=== PATIENT | male | born 1985 | race Caucasian/White ===

== ENCOUNTER 2018-07-15 12:37 | Inpatient (IN) | payer OTHER ==
[~2018-07-15] VITALS: Ht 175.3 cm; Wt 104.5 kg
--- NOTE | 2018-07-15 15:00 | NUR ---
RECEIVED PT FROM DR. CHOE OFFICE, DIRECT ADMIT. ADMITTED WITH ACUTE APPENDICITIS. NO C/O PAIN. NO S/S OF ACUTE DISTRESS NOTED. FAMILY AT BEDSIDE. PT AMBULATORY. ALERT AND ORIENTED. IV TO RIGHT FOREARM, SL, SITE PATENT WITHOUT REDNESS OR SWELLING. PT DENIES ANYTHING FURTHER AT THIS TIME. CALL LIGHT IN REACH. WILL CONTINUE TO MONITOR.
[2018-07-15 15:45] VITALS: BP 114/78
[2018-07-15 16:02] LABS: BASOPHILS 0.1 % (0-2); EOSINOPHILS 0 % (0-7); HEMATOCRIT 44.8 % (42.0-54.0); IMMATURE GRANULOCYTES 0.3 % (0-5); LYMPHOCYTES 9.4 % (15-50); MCH 29.6 pg (26.0-34.0); MCHC 35.7 g/dL (31.0-37.0); MEAN PLATELET VOLUME 12.1 fL (7.4-10.4); NEUTROPHILS 83.2 % (40-80); PLATELET COUNT 166 10x3/uL (130-400); RDW 12.8 % (11.5-14.5); WBC 14.3 10x3/uL (4.8-10.8)
[2018-07-15 16:22] LABS: ALBUMIN 3.8 g/dL (3.4-5.0); ALKALINE PHOSPHATASE 77 U/L (46-116); ALT (SGPT) 41 U/L (10-68); BILIRUBIN - TOTAL 0.71 mg/dL (0.2-1.3); CALC OSMOLALITY 276 mosm/kg (275-300); CALCIUM 8.6 mg/dL (8.5-10.1); CARBON DIOXIDE 27.3 mmol/L (21.0-32.0); CHLORIDE - SERUM 102 mmol/L (98-107); CREATININE - SERUM 1.1 mg/dL (0.6-1.3); GLUCOSE 114 mg/dL (74-106); POTASSIUM - SERUM 4.1 mmol/L (3.5-5.1); PROTEIN - SERUM 6.7 g/dL (6.4-8.2); SODIUM 138 mmol/L (136-145); UREA NITROGEN 13 mg/dL (7-18); eGFR NON AFRICAN AMERICAN 82 mL/min (90-120)
[2018-07-15 16:57] VITALS: BP 114/78
[2018-07-15 17:29] VITALS: BMI 34.0
--- NOTE | 2018-07-15 17:30 | NUR ---
PT TAKEN TO SURGERY FOR LAP APPY. NO C/O PAIN. NO S/S OF ACUTE DISTRESS NOTED. FAMILY AT BEDSIDE. ACCOMPANIED BY HOSPITAL STAFF. PT DENIES ANYTHING AT THIS TIME
--- NOTE | 2018-07-15 17:51 | HP ---
PATIENT: HEBERT BERGER MEDICAL RECORD: [id number] ACCOUNT: [id number] LOCATION:D.MS [place] : 85 ADMISSION DATE: 07/15/18 PCP: DONNA PRABHAKAR DO HISTORY AND PHYSICAL EXAMINATION HISTORY: Mr. Berger is a 32-year-old white male that presents to my office today complaining of right lower quadrant abdominal pain, which started yesterday. He has not had any fever. He has had decreased appetite. He had nausea and vomiting overnight. His white count is 13,000. Urinalysis is negative. He is sent for a CAT scan. Verbal report confirms acute appendicitis with fecalith. He is admitted at this time for surgical evaluation. I have spoken to Dr. Reynaga. PAST MEDICAL HISTORY: Negative. PAST SURGICAL HISTORY: He had surgery on his wrist. ALLERGIES: None known. MEDICINES: None. FAMILY HISTORY: Noncontributory. SOCIAL HISTORY: The patient does smoke a pack per day. Occasional alcohol. REVIEW OF SYSTEMS: See chief complaint. No fever. Some nausea and vomiting last night, none today. No chest pain. No shortness of breath. Diffuse abdominal pain, which started yesterday, which is now localized to the right lower quadrant. No dysuria. No rash. PHYSICAL EXAMINATION: HEAD: Normocephalic. NECK: Soft and supple. HEART: Regular. LUNGS: Clear. ABDOMEN: Slightly distended and firm with tenderness in the right lower quadrant. EXTREMITIES: He has positive heel strike and positive psoas sign. IMPRESSION: Acute appendicitis. PLAN: Admit. IV fluids. Pain meds and antiemetics. Surgical consult with Dr. Reynaga. Hospitalist team also notified. TRANSINT:[id number] Voice Confirmation ID: [id number] DOCUMENT ID: [id number] HISTORY AND PHYSICAL [id number] HEBERT BERGER DONNA PRABHAKAR DO at 1759 CC: [id number] DICTATION DATE: 07/15/18 1513 FORESTRY FOREMAN: 07/15/18 1540 [place] [address]
--- NOTE | 2018-07-15 19:10 | NUR ---
RECEIVED PT FROM RECOVERY. PT HAD LAP APPY, 3 INCISION SITES, CDI. NO C/O PAIN. NO S/S OF ACUTE DISTRESS NOTED. VITALS STABLE. PT DENIES ANYTHING FURTHER AT THIS TIME. CALL LIGHT IN REACH. WILL CONTINUE TO MONITOR.
[2018-07-15 19:12] VITALS: BP 126/78
[2018-07-15 20:25] VITALS: BP 125/69
--- NOTE | 2018-07-15 20:45 | NUR ---
SUPINE IN BED, GIRLFRIEND LYING ON EDGE AT BESIDE HIM. PT IS A&O X 4, VITAL SIGNS STABLE. DENIES PAIN. STATES HE GOT UP AND URINATED LESS THAN 30 MINUTES AGO. CL IN REACH, NO COMPLAINTS/REQUESTS AT THIS TIME WILL CONTINUE TO MONITOR.
[2018-07-16] VITALS (16 sets, daily range): BP systolic 82–149; BP diastolic 62–83
[2018-07-16 00:39] LABS: BASOPHILS 0.1 % (0-2); EOSINOPHILS 0 % (0-7); IMMATURE GRANULOCYTES 0.3 % (0-5); LYMPHOCYTES 12.3 % (15-50); MCH 28.8 pg (26.0-34.0); MCHC 34.2 g/dL (31.0-37.0); MCV 84.3 fL (80.0-100.0); MEAN PLATELET VOLUME 12.4 fL (7.4-10.4); MONOCYTES 1.7 % (2-11); NEUTROPHILS 85.6 % (40-80); RDW 13.1 % (11.5-14.5); WBC 17.5 10x3/uL (4.8-10.8)
[2018-07-16 00:49] LABS: HEMOGLOBIN 12.3 g/dL (13.5-17.5); PLATELET COUNT 288 10x3/uL (130-400); RBC 4.27 10x6/uL (4.20-6.10)
--- NOTE | 2018-07-16 01:00 | NUR ---
RECEIVED REPORT FROM MARQUIS. PT BEING TRANSFERRED TO ICU AFTER HE ATTEMPTED TO GET UP OOB, WENT PALE, AND LOST CONSCIOUSNESS. BP WAS DECREASED, HR ELEVATED. RAPID RESPONSE WAS CALL. DR VINES WANTS US TO MONITOR PT OVERNIGHT. PT ARRIVED TO UNIT AWAKE AND ALERT. PT WAS ABLE TO MOVE SELF OVER TO BED. CURRENTLY PT HAS A BOLUS OF LR GOING THAT WAS ORDERED DURING THE RAPID RESPONSE. DR TRIMBLE ALSO RESPONDED TO FLOOR DURING THE TIME AND ORDERED CARDIAC ENZYMES Q6H. RESULTS OF FIRST ONES ARE BACK AND WITHIN THE NORMAL RANGE. PT HAS FAMILY AT BEDSIDE. BP IS STABLE AT THIS TIME. HR IS STILL RUNNING SINUS TACH AT THIS TIME. WILL CONTINUE TO MONITOR CLOSELY.
[2018-07-16 01:19] LABS: ALKALINE PHOSPHATASE 58 U/L (46-116); BILIRUBIN - TOTAL 1.09 mg/dL (0.2-1.3); CALCIUM 7.7 mg/dL (8.5-10.1); CHLORIDE - SERUM 103 mmol/L (98-107); CKMB 0.3 U/L (0.0-3.6); CREATINE KINASE 55 UL (21-232); PROTEIN - SERUM 5.7 g/dL (6.4-8.2); SODIUM 137 mmol/L (136-145); UREA NITROGEN 16 mg/dL (7-18)
[2018-07-16 01:21] LABS: ALBUMIN 2.8 g/dL (3.4-5.0); ALT (SGPT) 28 U/L (10-68); CALC OSMOLALITY 290 mosm/kg (275-300); CARBON DIOXIDE 15.2 mmol/L (21.0-32.0); CREATININE - SERUM 1.9 mg/dL (0.6-1.3); GLUCOSE 384 mg/dL (74-106); TROPONIN-I < 0.017 ng/mL (0.000-0.060); eGFR NON AFRICAN AMERICAN 44 mL/min (90-120)
--- NOTE | 2018-07-16 03:04 | NUR ---
REASSESSMENT COMPLETED, SEE FLOWSHEET. PT IS RESTING IN BED AT THIS TIME WITH EYES CLOSED. NO SIGNS OF ACUTE DISTRESS. WILL CONTINUE TO MONITOR.
[2018-07-16 03:36] LABS: HEMATOCRIT 31.7 % (42.0-54.0)
--- NOTE | 2018-07-16 05:05 | NUR ---
PT RESTING IN BED WITH EYES OPEN. FAMILY AT BEDSIDE. VSS AT THIS TIME. NO SIGNS OF ACUTE DISTRESS. WILL CONTINUE TO MONITOR.
[2018-07-16 08:00] LABS: CKMB 0.6 U/L (0.0-3.6); CREATINE KINASE 46 UL (21-232)
[2018-07-16 08:04] LABS: TROPONIN-I 0.089 ng/mL (0.000-0.060)
--- NOTE | 2018-07-16 09:00 | NUR ---
0700 PT RECIEVED ALERT AN DORIENTED VSS ON ROOM AIR, CONTINENT, DENIES PAIN, DRESSINGS FROM LAP APPY SITES CDI, RFA PIV WITH NS 50ML/HR, DENIES PAIN AND ALL NEEDS, STATES HE IS PASSING GAS, REFUSES BREAKFAST AT THIS TIME 0830 DR VINES IN UNIT, AWARE OF LABS AND TRIPONIN, WILL CALL WITH RESULTS OF SCANS , FAMILY AT BEDSIDE AND SPOKE WITH DR VINES, WILL CONTINUE TO MONITOR
--- NOTE | 2018-07-16 10:06 | NUR ---
SPOKE WITH RADIOLOGY TO CONFIRM THEY ARE AWARE OF PERFUSION AND US ORDER
--- NOTE | 2018-07-16 10:50 | NUR ---
PT NOTED TO HAVE ANOTHER DARK LIQUID BOWEL MOVEMENT, CHANGED PT AND HE BEGAN BITING ETT, WHEN ROLLED ONTO BACK STOPPED BITING ETT, BEGAN A SHIVERING/SHAKING MOTION WITH ARMS AND UPPER BODY, DR FAIRCHILD IN UNIT AND AWARE, IN ROOM TO ASSESS SHIVERING MOTION, PER DR FAIRCHILD WILL LEAVE SEDATION OFF PT IS NOT WITHDRAWING FROM PAIN AT THIS TIME AND WILL CONTINUE TO MONITOR FOR CHANGES, PUPILS PERRLA.
--- NOTE | 2018-07-16 12:18 | NUR ---
1200 TAKEN TO VQ SCAN, REVIEWED DIRECTIONS WITH NUC MED AND PT STATES UNDERSTANDING, UPON PLACING MASK FOR SCAN PT BEGAN TO GET ANXIOUS STATED HE DIDNT KNOW HOW TO BREATHE AND THAT HOLDING HIS BREATH FOR A LONG TIME MADE HIS CHEST HURT, INSTRUCTED THAT HE WILL HOLD BREATH FOR ONLY 10 SECONDS AND THEN BREATH NORMALLY, PT UNABLE TO FOLLOW THE DIRECTIONS DURING TEST AND RETURNED TO ROOM, DR VINES PAGED AND NOTIFIED
[2018-07-16 12:49] LABS: CKMB 0.7 U/L (0.0-3.6); CREATINE KINASE 61 UL (21-232); TROPONIN-I 0.058 ng/mL (0.000-0.060)
--- NOTE | 2018-07-16 14:52 | NUR ---
PT TO TRANSFER TO 2229, PT STATED HE WOULD CALL HIS FAMILY TO NOTIFY, CALLED REPORT TO FLORENTINO
--- NOTE | 2018-07-16 15:19 | NUR ---
PATIENT ADMITTED TO ROOM 2230 FROM ICU. SKIN W/D TO TOUCH, COLOR PINK, RESP. REGULAR AND EVEN AT 18. ABDOMEN DISTENDED AND 3 INCISION AREAS COVERED WITH BANDAIDS, HYPOACTIVE BOWEL SOUNDS. LUNS CLEAR HAVE EXPIRATORY WHEEZING. MIRNA FEET NO EDEMA NOTED POSITIVE BILATERAL PULSES. PASSING GAS NO BOWEL MOVEMENT YET. VS: 152/82, 93 O2 SAT 96 ON ROOM AIR, RESP. 18, 98.3 ORAL TEMP. DENIED PAIN WHEN ASKED. C/L WITHIN REACH AND SR'S UP X'S 2.
[2018-07-16 19:09] LABS: CREATINE KINASE 73 UL (21-232); TROPONIN-I 0.054 ng/mL (0.000-0.060)
--- NOTE | 2018-07-16 19:30 | NUR ---
RECEIVED REPORT, ASSUMED CARE, DENIES NEEDS, FAMILY AT BEDSIDE, CALL LIGHT IN REACH, NO S/S OF DISTRESS NOTED, BED LOWEST POSITION, WILL CONTINUE POC
[2018-07-17] VITALS: BP 120/57; BP 131/70
[2018-07-17 03:00] VITALS: BP 123/56
--- NOTE | 2018-07-17 04:00 | NUR ---
PT RESTING QUIETLY, EYES CLOSED. RESP EVEN, UNLABORED. NO DISTRESS NOTED. AGREE WITH LOGGING EQUIPMENT MECHANIC'S ASSESSMENT, CONTINUE PLAN OF CARE.
[2018-07-17 06:18] LABS: BASOPHILS 0.1 % (0-2); EOSINOPHILS 0.1 % (0-7); IMMATURE GRANULOCYTES 0.2 % (0-5); LYMPHOCYTES 29.2 % (15-50); MCH 28.8 pg (26.0-34.0); MCHC 33.8 g/dL (31.0-37.0); MCV 85.4 fL (80.0-100.0); MONOCYTES 8.5 % (2-11); NEUTROPHILS 61.9 % (40-80); RDW 13.5 % (11.5-14.5)
[2018-07-17 06:22] LABS: HEMATOCRIT 23.4 % (42.0-54.0); HEMOGLOBIN 7.9 g/dL (13.5-17.5); PLATELET COUNT 196 10x3/uL (130-400); RBC 2.74 10x6/uL (4.20-6.10); WBC 10.8 10x3/uL (4.8-10.8)
[2018-07-17 06:46] LABS: ALBUMIN 2.7 g/dL (3.4-5.0); BILIRUBIN - TOTAL 0.37 mg/dL (0.2-1.3); CALCIUM 7.5 mg/dL (8.5-10.1); POTASSIUM - SERUM 3.7 mmol/L (3.5-5.1); PROTEIN - SERUM 5.4 g/dL (6.4-8.2)
[2018-07-17 06:51] LABS: ANION GAP 14.3 mmol/L (8-16); CARBON DIOXIDE 25.4 mmol/L (21.0-32.0); CREATININE - SERUM 1.3 mg/dL (0.6-1.3)
--- NOTE | 2018-07-17 08:14 | NUR ---
PT AAOX4 RESP EVEN AND NONLABORED, NO SIGNS OF DISTRESS NOTED, CL IN REACH WILL CONTINUE TO MONITOR
[2018-07-17 08:37] VITALS: BP 111/58
[2018-07-17 12:30] VITALS: BP 111/59
--- NOTE | 2018-07-17 12:41 | NUR ---
I CALLED DR. SOMMER WHO IS GEMOLOGIST FOR DR. VINES ABOUT THE BLOOD TRANSFUSION AND HE SAID IT WAS OKAY TO TRANSFUSE THE 2 UNITS OF BLOOD
--- NOTE | 2018-07-17 13:40 | NUR ---
STARTED FIRST UNIT OF BLOOD AT THIS TIME. PATIENT VS STABLE. CUT OFF MAN IN ROOM MONITORING PATIENT FOR 1ST 15 MINUTES. PATIENT HAS NO COMPLAINTS OR SIGNS OF DISTRESS. CALL LIGHT WITHIN REACH.
[2018-07-17 16:50] VITALS: BP 138/69
--- NOTE | 2018-07-17 17:43 | NUR ---
PT AAOX4 RESP EVEN AND NONLABORED, FAMILY AT BEDSIDE, 2ND UNIT OF BLOOD TRANSFUSING AT THIS TIME, NO SIGNS OF DISTRESS NOTED, CL IN REACH
--- NOTE | 2018-07-17 19:20 | NUR ---
RECEIVED REPORT, ASSUMED CARE, WALKING AROUND UNIT WITH FAMILY, DENIES NEEDS, 2ND UNIT PRBCS FINISHING, NO S/S OF ADVERSE REACTION, WILL CONITNUE POC
[2018-07-17 20:00] VITALS: BP 134/76
--- NOTE | 2018-07-17 20:30 | NUR ---
2ND UNIT OF PRBCS DONE, FLUSHING LINE
[2018-07-18] VITALS: BP 128/58
[2018-07-18 03:00] VITALS: BP 128/58
--- NOTE | 2018-07-18 03:22 | NUR ---
LYING IN BED WITH EYES CLOSED. RESP EVEN AND NONLABORED. NO DISTRESS. CL IN REACH.
[2018-07-18 05:38] LABS: BASOPHILS 0.2 % (0-2); EOSINOPHILS 0.4 % (0-7); HEMATOCRIT 25.1 % (42.0-54.0); HEMOGLOBIN 8.4 g/dL (13.5-17.5); IMMATURE GRANULOCYTES 0.5 % (0-5); LYMPHOCYTES 37.2 % (15-50); MCH 27.8 pg (26.0-34.0); MCHC 33.5 g/dL (31.0-37.0); MEAN PLATELET VOLUME 10.8 fL (7.4-10.4); MONOCYTES 8.1 % (2-11); NEUTROPHILS 53.6 % (40-80); RBC 3.02 10x6/uL (4.20-6.10); RDW 15.2 % (11.5-14.5)
[2018-07-18 05:50] LABS: MCV 83.1 fL (80.0-100.0); PLATELET COUNT 148 10x3/uL (130-400); WBC 5.6 10x3/uL (4.8-10.8)
[2018-07-18 06:08] LABS: ALBUMIN 2.6 g/dL (3.4-5.0); ALKALINE PHOSPHATASE 52 U/L (46-116); ALT (SGPT) 21 U/L (10-68); BILIRUBIN - TOTAL 0.46 mg/dL (0.2-1.3); CALCIUM 7.7 mg/dL (8.5-10.1); CARBON DIOXIDE 26.8 mmol/L (21.0-32.0); CHLORIDE - SERUM 105 mmol/L (98-107); CREATININE - SERUM 1.1 mg/dL (0.6-1.3); GLUCOSE 112 mg/dL (74-106); POTASSIUM - SERUM 3.7 mmol/L (3.5-5.1); PROTEIN - SERUM 5.5 g/dL (6.4-8.2); SODIUM 140 mmol/L (136-145); eGFR NON AFRICAN AMERICAN 82 mL/min (90-120)
[2018-07-18 06:15] LABS: CALC OSMOLALITY 280 mosm/kg (275-300); UREA NITROGEN 15 mg/dL (7-18)
--- NOTE | 2018-07-18 07:48 | NUR ---
PT AAOX4 RESP EVEN AND NONLABORED, NO SIGNS OF DISTRESS NOTED, SITTING ON SIDE OF BED, FAMILY AT BEDSIDE, CL IN REACH
[2018-07-18 08:24] VITALS: BP 131/60
--- NOTE | 2018-07-18 10:00 | NUR ---
PT AAOX4 RESP EVEN AND NONLABORED, WANTING TO BE UNHOOKED TO WALK THE TO HALLS, DONE AT THIS TIME FAMILY AT BEDSIDE CL IN REACH
[2018-07-18 11:14] LABS: % SATURATION 18 % (15-55); IRON 45 ug/dl (35-150); TOTAL IRON BIND CAPACITY 250 ug/dl (260-445); UNSAT IRON BIND CAPACITY 205 ug/dl (150-375)
[2018-07-18 12:05] LABS: BASOPHILS 0.1 % (0-2); EOSINOPHILS 0.3 % (0-7); HEMATOCRIT 29.3 % (42.0-54.0); HEMOGLOBIN 9.8 g/dL (13.5-17.5); IMMATURE GRANULOCYTES 0.4 % (0-5); LYMPHOCYTES 37.2 % (15-50); MCH 28.1 pg (26.0-34.0); MCHC 33.4 g/dL (31.0-37.0); MEAN PLATELET VOLUME 10.7 fL (7.4-10.4); MONOCYTES 6.4 % (2-11); NEUTROPHILS 55.6 % (40-80); PLATELET COUNT 193 10x3/uL (130-400); RBC 3.49 10x6/uL (4.20-6.10); WBC 7.4 10x3/uL (4.8-10.8)
[2018-07-18 12:30] VITALS: BP 144/76
[2018-07-18 15:06] VITALS: Ht 175.3 cm; Wt 104.5 kg
[2018-07-18 16:30] VITALS: BP 127/67
[2018-07-18 17:40] LABS: BILIRUBIN - DIRECT 0.1 mg/dL (0.00-0.30)
[2018-07-18 18:07] LABS: BILIRUBIN - INDIRECT 0.25 mg/dL (0.00-1.00); BILIRUBIN - TOTAL 0.35 mg/dL (0.2-1.3)
--- NOTE | 2018-07-18 18:43 | NUR ---
SPORTS LAWYER NOTE: AAOX4. UP ADLIB. DENIES PAIN. NO S/S OF ACUTE DISTRESS. CL IN PLACE
[2018-07-18 20:00] VITALS: BP 122/79
--- NOTE | 2018-07-18 20:02 | NUR ---
RECEIVED REPORT, ASSUMED CARE, A&O, WALKING AROUND UNIT WITH FAMILY, DENIES NEEDS, RFA SL, NO S/S OF DISTRESS NOTED, WILL CONTINUE POC
[2018-07-19] VITALS: BP 120/71
--- NOTE | 2018-07-19 02:07 | NUR ---
Patent resting in bed no s/s of distress resprations even and unlabored call light in reach.
[2018-07-19 03:00] VITALS: BP 119/65
[2018-07-19 06:49] LABS: ALBUMIN 2.6 g/dL (3.4-5.0); ALKALINE PHOSPHATASE 64 U/L (46-116); BILIRUBIN - TOTAL 0.33 mg/dL (0.2-1.3); CALC OSMOLALITY 285 mosm/kg (275-300); CALCIUM 8.1 mg/dL (8.5-10.1); CARBON DIOXIDE 24.3 mmol/L (21.0-32.0); CHLORIDE - SERUM 109 mmol/L (98-107); GLUCOSE 107 mg/dL (74-106); POTASSIUM - SERUM 3.7 mmol/L (3.5-5.1); PROTEIN - SERUM 5.6 g/dL (6.4-8.2); SODIUM 143 mmol/L (136-145); UREA NITROGEN 16 mg/dL (7-18); eGFR NON AFRICAN AMERICAN > 90 mL/min (90-120)
[2018-07-19 06:54] LABS: ALT (SGPT) 29 U/L (10-68)
[2018-07-19 07:40] LABS: BASOPHILS 0.2 % (0-2); EOSINOPHILS 0.9 % (0-7); HEMATOCRIT 26.1 % (42.0-54.0); HEMOGLOBIN 8.8 g/dL (13.5-17.5); IMMATURE GRANULOCYTES 0.6 % (0-5); LYMPHOCYTES 41.8 % (15-50); MCH 27.8 pg (26.0-34.0); MCHC 33.7 g/dL (31.0-37.0); MCV 82.6 fL (80.0-100.0); MONOCYTES 7.5 % (2-11); PLATELET COUNT 180 10x3/uL (130-400); RBC 3.16 10x6/uL (4.20-6.10); RDW 14.6 % (11.5-14.5)
[2018-07-19 07:42] LABS: WBC 4.7 10x3/uL (4.8-10.8)
--- NOTE | 2018-07-19 07:50 | NUR ---
PATIENT REPORT RECIEVED ASSUMED CARE. PATIENT IN BED WITH IV INTACT. NO COMPLAINTS OR SIGNS OF DISTRESS. CALL LIGHT WITHIN REACH.
[2018-07-19 08:03] VITALS: BP 138/86
--- NOTE | 2018-07-19 08:45 | NUR ---
PATIENT REFUSED MEDS. STATED SUPPOSE TO BE GOING HOME TODAY. IV INTACT. CALL LIGHT WITHIN REACH.
[2018-07-19] MEDS ORDERED: MIRALAX17 GM PO (10:40)
[2018-07-19] MEDS ORDERED: HYDROCODON-ACE1 EAC7 PO (10:40)
--- NOTE | 2018-07-19 13:06 | MORECARE ---
CASE MANAGEMENT DISCHARGE SUMMARY PATIENT: HEBERT DICKSON AJ UNIT: [id number] ADM DATE: 07/15/18 AGE: 32 : 85 SEX: M ROOM/BED: D.2230 AUTHOR: BRITTANY KAY PHYSICIAN: REFERRING PHYSICIAN: CHET SEE MD DATE OF SERVICE: 07/19/18 Discharge Plan Patient Name: HEBERT DICKSON [facility] [facility] 1985 Planned Disposition: Home Anticipated Discharge Date: 07/19/18 Discharge Date: Expected LOS: 4 Initial Reviewer: [email or web address] Initial Review Date: 07/19/2018 Generated: 07/19/18 2:06 pm DCPIA - Discharge Planning Initial Assessment Updated by [email or web address]: Vi Raymond on 07/19/18 1:03 pm * Is the patient Alert and Oriented? Yes * How many steps to enter\exit or inside your home? 0/0 * PCP Aníbal * [facility] * Preadmission Environment Home with Family * ADLs Independent * Equipment None * List name and contact numbers for known caregivers / representatives who currently or will assist patient after discharge[facility] [phone] * Verbal permission to speak to the caregivers and representatives has been obtained from the patient. Yes * Community resources currently utilized None * Additional services required to return to the preadmission environment? No * Can the patient safely return to the preadmission environment? Yes * Has this patient been hospitalized within the prior 30 days at any hospital? No Patient Name: HEBERT DICKSON Page [phone] at 1306 All edits/amendments must be made on the electronic document DICTATION DATE: 07/19/18 1306 LOKIE ENGINEER: DAYAMI 07/19/18 1306 RPT#: [id number] DC DATE: STATUS: ADM IN [facility] [address] [place] [address] END OF REPORT
--- NOTE | 2018-07-19 13:13 | MORECARE ---
CASE MANAGEMENT DISCHARGE SUMMARY PATIENT: HEBERT DICKSON UNIT: [id number] ADM DATE: 07/15/18 AGE: 32 : 85 SEX: M ROOM/BED: D.2230 AUTHOR: RAHUL,DOC PHYSICIAN: REFERRING PHYSICIAN: CHET SEE MD DATE OF SERVICE: 07/19/18 Discharge Plan Patient Name: HEBERT DICKSON Facility: [facility]:[place] : 1985 Planned Disposition: Home Anticipated Discharge Date: 07/19/18 Discharge Date: Expected LOS: 4 Initial Reviewer: [email or web address] Initial Review Date: 07/19/2018 Generated: 07/19/18 2:13 pm Comments DCP- Discharge Planning Updated by [email or web address]: Vi Raymond on 07/19/18 12:[address] Patient Name: HEBERT DICKSON Admission Status: Elective Accout number: [id number] Admission Date: 07-15-2018 : 1985 Admission Diagnosis:UNSPECIFIED ACUTE APPENDICITIS Attending: CHET SEE Current LOS: 4 Anticipated DC Date: 07-19-2018 Planned Disposition: Home Primary Insurance: [employer] MANAGED MEDICAID Discharge Planning Comments: CM met with patient and to discuss discharge planning.He is being discharged home today pending repeat lab. He states he is independent with all ADL's. and IADL's. States his or mother will drive him home on discharge. Declines need for home health or DME. No needs identified. CM will continue to follow and assist with discharge planning/needs. Software Engineer Mobile: Vi Raymond DCPIA - Discharge Planning Initial Assessment Updated by [email or web address]: iV Raymond on 07/19/18 1:03 pm * Is the patient Alert and Oriented? Yes * How many steps to enter\exit or inside your home? 0/0 * PCP Aníbal * [facility] * Preadmission Environment Home with Family * ADLs Independent * Equipment None * List name and contact numbers for known caregivers / representatives who currently or will assist patient after discharge: Lisa [facility] - [phone] * Verbal permission to speak to the caregivers and representatives has been obtained from the patient. Yes * Community resources currently utilized None * Additional services required to return to the preadmission environment? No * Can the patient safely return to the preadmission environment? Yes * Has this patient been hospitalized within the prior 30 days at any hospital? No Last DP export: 07/19/18 12:06 p Patient Name: HEBERT DICKSON Page 11675 at 1313 All edits/amendments must be made on the electronic document DICTATION DATE: 07/19/181312 SMALL BUSINESS DIRECTOR: DAYAMI 07/19/181312 RPT#: [id number] DC DATE: STATUS: ADM IN [facility] [address] [place] [address] END OF REPORT
[2018-07-19 13:21] LABS: HEMATOCRIT 28.3 % (42.0-54.0); HEMOGLOBIN 9.6 g/dL (13.5-17.5)
--- NOTE | 2018-07-19 14:45 | NUR ---
SPOKE WITH DR. LANDRY ABOUT H&H. STATED OK TO DC HOME
--- NOTE | 2018-07-19 14:57 | NUR ---
PATIENT RECIEVED DISCHARGE INSTRUCTIONS. VERBALIZED UNDERSTANDING. PRESCRIPTION GIVEN TO PATIENT. IV REMOVED WITH CATH TIP INTACT. NO QUESTIONS AT THIS TIME. FAMILY AT BEDSIDE. CALL LIGHT WITHIN REACH.
[2018-07-20 09:18] LABS: FOLATE (FOLIC ACID) - SERUM 4.4 ng/mL (>3.0)
--- NOTE | 2018-07-20 12:14 | MORECARE ---
CASE MANAGEMENT DISCHARGE SUMMARY PATIENT: HEBERT DICKSON UNIT: [id number] ADM DATE: 07/15/18 AGE: 32 : 85 SEX: M ROOM/BED: D.2230 AUTHOR: RAHUL,DOC PHYSICIAN: REFERRING PHYSICIAN: CHET SEE MD DATE OF SERVICE: 07/20/18 Discharge Plan Patient Name: HEBERT DICKSON Facility: [facility]:[place] : 1985 Planned Disposition: Home Anticipated Discharge Date: 07/19/18 Discharge Date: 07/19/2018 Expected LOS: 4 Initial Reviewer: [email or web address] Initial Review Date: 07/19/2018 Generated: 07/20/18 1:14 pm DCP- Discharge Planning Updated by [email or web address]: Vi Raymond on 07/19/18 12:[address] Patient Name: HEBERT DICKSON Admission Status: Elective Accout number: [id number] Admission Date: 07-15-2018 : 1985 Admission Diagnosis:UNSPECIFIED ACUTE APPENDICITIS Attending: CHET SEE Current LOS: 4 Anticipated DC Date: 07-19-2018 Planned Disposition: Home Primary Insurance: [employer] MANAGED MEDICAID Discharge Planning Comments: CM met with patient and to discuss discharge planning.He is being discharged home today pending repeat lab. He states he is independent with all ADL's. and IADL's. States his or mother will drive him home on discharge. Declines need for home health or DME. No needs identified. CM will continue to follow and assist with discharge planning/needs. Research Librarian: Vi Raymond DCPIA - Discharge Planning Initial Assessment Updated by [email or web address]: Vi Raymond on 07/19/18 1:03 pm * Is the patient Alert and Oriented? Yes * How many steps to enter\exit or inside your home? 0/0 * PCP Aníbal * [facility] * Preadmission Environment Home with Family * ADLs Independent * Equipment None * List name and contact numbers for known caregivers / representatives who currently or will assist patient after discharge: Lisa [facility] - [phone] * Verbal permission to speak to the caregivers and representatives has been obtained from the patient. Yes * Community resources currently utilized None * Additional services required to return to the preadmission environment? No * Can the patient safely return to the preadmission environment? Yes * Has this patient been hospitalized within the prior 30 days at any hospital? No Last DP export: 07/19/18 12:13 p Patient Name: HEBERT DICKSON Page [phone] at 1214 All edits/amendments must be made on the electronic document DICTATION DATE: 07/20/181213 AUTOMATIC OVEN OPERATOR: DAYAMI 07/20/181213 RPT#: [id number] DC DATE:07/19/18 STATUS: DIS IN [facility] [address] [place] [address] END OF REPORT
[2018-07-21 16:12] LABS: ADAMTS13 ACTIVITY 85.7 % (>66.8)
[2018-07-21 17:10] LABS: G-6-PD - QUANT 268 (146-376); G-6-PD - RBC 3.18 x10E6/uL (4.14-5.80)
--- NOTE | 2018-08-05 09:41 | OP ---
PATIENT NAME: HEBERT DICKSON MEDICAL RECORD: [id number] :[birth year] LOCATION:D.MS Lat[address]2230 ADMISSION DATE:07/15/18 SURGEON: GURJIT VINES MD DATE OF OPERATION: 07/15/2018 PREOPERATIVE DIAGNOSIS: Acute appendicitis with localized peritonitis. POSTOPERATIVE DIAGNOSIS: Acute appendicitis with localized peritonitis. PROCEDURE: Laparoscopic appendectomy. SURGEON: Gurjit Vines MD REPORT OF PROCEDURE: The patient's abdomen was prepped and draped in sterile fashion. A cutdown was made on the superior aspect of the umbilicus. 0-Vicryls were placed in the fascia bilaterally and the fascia was incised with a 15-blade. I then bluntly entered the peritoneal cavity and placed a 12-mm Jose port. Under direct visualization, a 5-mm trocar was placed in the left lower quadrant and another was placed in the suprapubic region. The right lower quadrant was inspected and there were no signs of any fluid or abscess pockets. The appendix was found in a retrocecal location. This was dissected free from its lateral attachments. We were eventually able to open up a window at the base of the appendix near the colon. The base of the appendix was firm, consistent with a fecalith seen on imaging. The base of the appendix was transected with a 45 blue load Endo-BALAJI stapler. The mesentery was transected with a 45 white load Endo-BALAJI stapler. The appendix was placed into an Endo Catch bag. We irrigated out the right lower quadrant and assured there was no sign of any bleeding. At this point, the ports and insufflation were then removed and the appendix was taken out through the umbilicus. The umbilical fascia was closed with interrupted 0 Vicryls times 3. The wounds were irrigated out with normal saline and infused with 10 mL of 0.25% Marcaine with epinephrine. The skin incisions were all closed with subcutaneous 5-0 Monocryl and dressed appropriately. COMPLICATIONS: None. CONDITION: Stable. ANESTHESIA: General endotracheal and local. BLOOD LOSS: Minimal. TRANSINT:[id number] Voice Confirmation ID: [id number] DOCUMENT ID: [id number] GURJIT VINES MD at 0941 CC: DONNA PRABHAKAR [id number] DICTATION DATE: 07/15/18 0475 CLIENT SERVICES REPRESENTATIVE: 07/15/182043 DIS IN 07/19/18 [facility] [address], [facility]
== END 2018-07-19 15:11 | disposition home or self-care (01) | DRG 342 ==
LOC: D.CT 12:37 → D.ICU 15:18 → D.MS 15:18 → D.ICU 07-16 00:52 → D.MS 07-16 14:53
PROVIDERS: Family Medicine; Internal Medicine Hematology & Oncology; Surgery; ADMIT Family Medicine
PROC: 0DTJ4ZZ Resection of Appendix, Percutaneous Endoscopic Approach (ICD-10-PCS; principal; 2018-07-15 17:30)
DX: K35.30 Acute appendicitis with localized peritonitis, without perforation or gangrene (principal); E87.2 Acidosis; J98.11 Atelectasis; D62 Acute posthemorrhagic anemia; F17.213 Nicotine dependence, cigarettes, with withdrawal; K21.9 Gastro-esophageal reflux disease without esophagitis; F17.200 Nicotine dependence, unspecified, uncomplicated; E86.0 Dehydration